=== PATIENT | female | born 1965 | race Caucasian/White ===

== ENCOUNTER 2018-05-24 08:54 | Day surgery (SDC) | payer OTHER ==
[~2018-05-24] VITALS: Ht 162.6 cm; Wt 89.5 kg
[~2018-05-24 08:54] MED LIST: BUPIVACAINE/PF 0.5% ONE; CEFAZOLIN 1,000 MG ONE; CHOL5000 PO; DEXAMETHASONE 4 MG/ML, 1ML ONE; EPINEPHRINE 1 MG/ML, 1ML ONE; FENO54TA17 PO; FENTANYL PF 250 MCG/5ML ONE; GLYCOPYRROLATE 0.4 MG/2 ML, 2ML ONE; LIDOCAINE 1%-EPI 1:100K, 30ML ONE; MIDAZOLAM 1 MG/ML, 2ML ONE; NEOSTIGMINE 1 MG/ML, 10ML ONE; ONDANSETRON 2MG/ML, 2ML ONE; PROPOFOL 10 MG/ML, 20ML ONE; PROPOFOL 50 ML ONE; ROCURONIUM 10MG/ML,5ML ONE; SODIUM CHLORIDE 0.9% PF 10ML ONE; VARE1TAB20 PO
[2018-05-24 09:14] VITALS: BP 132/80
[2018-05-24] MEDS ORDERED: GABA300C10 PO (09:18)
[2018-05-24] MEDS ORDERED: LACTATED RINGERS 1,000 ML IV SCH (09:19)
[2018-05-24] MEDS ORDERED: ACETAMINOPHEN 500 MG TABLET ONE (09:24)
[2018-05-24] MEDS ORDERED: LABETALOL 5MG/ML, 20ML IV PRN (09:30)
[2018-05-24] MEDS ORDERED: ACETAMINOPHEN 500 MG TABLET PO ONE (09:30)
[2018-05-24] MEDS ORDERED: FENTANYL PF 100 MCG/2ML IV PRN (09:30)
[2018-05-24] MEDS ORDERED: PROMETHAZINE 25 MG/ML, 1ML IV PRN (09:30)
[2018-05-24] MEDS ORDERED: MORPHINE SULFATE 4 MG/ML, 1ML IVPush PRN (09:30)
[2018-05-24] MEDS ORDERED: PROMETHAZINE 12.5 MG SUPP PR PRN (09:30)
[2018-05-24] MEDS ORDERED: ONDANSETRON 2MG/ML, 2ML IV PRN (09:30)
[2018-05-24] MEDS ORDERED: ONDANSETRON ODT 8 MG PO PRN (09:30)
[2018-05-24] MEDS ORDERED: PROMETHAZINE 25 MG SUPP PR PRN (09:30)
[2018-05-24] MEDS ORDERED: HYDROmorphone 1 MG/ML, 1ML IV PRN (09:30)
[2018-05-24] MEDS ORDERED: PROMETHAZINE 25 MG/ML, 1ML IM PRN ×2 (09:30)
[2018-05-24] MEDS ORDERED: hydrALAzine 20 MG/ML, 1ML IV PRN (09:30)
[2018-05-24] MEDS ORDERED: MEPERIDINE/PF 25MG/0.5ML IVPush PRN (09:30)
[2018-05-24] MEDS ORDERED: PHENYLEPHRINE 10 MG/ML ONE (09:46)
[2018-05-24] MEDS ORDERED: PROPOFOL 50 ML ONE (10:26)
[2018-05-24] MEDS ORDERED: OMNIPAQUE 180 MG/ML, 20ML VIAL ONE (11:19)
== END 2018-05-24 17:15 | disposition home or self-care (01) ==
LOC: OUT 08:54
PROVIDERS: ATTEND Orthopaedic Surgery Orthopaedic Surgery of the Spine
DX: M48.54XA Collapsed vertebra, not elsewhere classified, thoracic region, initial encounter for fracture (principal); Z90.710 Acquired absence of both cervix and uterus; Z88.1 Allergy status to other antibiotic agents; Z88.5 Allergy status to narcotic agent; Z88.0 Allergy status to penicillin; Z88.8 Allergy status to other drugs, medicaments and biological substances
CPT/HCPCS: 22513; 22515; 72072; 88307; 88311; C1713; J0171; J0690; J1100; J2250; J2370; J2405; J2704; J2710; J3010; J3490; J7120; Q9965